=== PATIENT | female | born 1960 | race Caucasian/White ===

== ENCOUNTER 2019-12-29 07:22 | Inpatient (IN) | payer BC ==
[~2019-12-29] VITALS: Ht 154.9 cm; Wt 76.8 kg
[2019-12-29] MEDS ORDERED: LEVO50TA8 PO (07:31)
[2019-12-29] MEDS ORDERED: DICY10CA88 PO (07:31)
[2019-12-29] MEDS ORDERED: PANT40TA4 PO (07:31)
[2019-12-29] MEDS ORDERED: ONDANSETRON HCL 4MG/2ML INJ IV STA (09:05)
[2019-12-29] MEDS ORDERED: MORPHINE SULFATE 4 MG/ML CPJ (NOT FOR IM USE) IV STA (09:05)
[2019-12-29] MEDS ORDERED: SODIUM CHLORIDE 0.9% 1,000 ML IV ONE (09:05)
[2019-12-29] MEDS ORDERED: FAMOTIDINE 20MG/2ML VIAL IV STA (09:05)
[2019-12-29 09:21] LABS: CHLORIDE 108 mEq/L (98-107)
[2019-12-29 09:26] LABS: BASOPHILS % 0.2 % (0.0-2.0); EOSINOPHILS % 0.6 % (0.0-5.0); HEMATOCRIT. 41.2 % (36.0-48.0); LYMPHOCYTES % 13.3 % (20.0-50.0); MEAN CORPUSCULAR HEMOGLOBIN 32.6 pg (28.0-32.0); MEAN CORPUSCULAR VOLUME 95.8 fL (81.0-99.0); MEAN PLATELET VOLUME 9.1 fl (7.4-10.4); MONOCYTES % 2.6 % (2.0-8.0); NEUTROPHILS % 83.3 % (40.0-76.0); PLATELET 269 x1000/uL (130-400); RED CELL DISTRIBUTION WIDTH 13.3 % (11.6-14.6)
[2019-12-29 09:28] LABS: CLARITY URINE CLEAR (CLEAR); COLOR URINE YELLOW (YELLOW); KETONES URINE NEGATIVE (NEGATIVE); LEUKOCYTE ESTERASE URINE NEGATIVE (NEGATIVE); NITRITE URINE NEGATIVE (NEGATIVE); OCCULT BLOOD URINE NEGATIVE (NEGATIVE); PH URINE 7.5 (4.5-8.0); PROTEIN URINE NEGATIVE (NEGATIVE); SPECIFIC GRAVITY URINE 1.024 (1.005-1.030)
[2019-12-29 09:35] LABS: PROTHROMBIN TIME 10.3 sec (9.6-11.0)
[2019-12-29] MEDS ORDERED: PIPERACILLIN/TAZ 3.375G PREMIX 50 ML IV ONE (13:30)
[2019-12-29] MEDS ORDERED: MORPHINE SULFATE 2 MG/ML CPJ (NOT FOR IM USE) IV PRN (13:45)
[2019-12-29] MEDS ORDERED: ONDANSETRON HCL 4MG/2ML INJ IV PRN (13:45)
[2019-12-29] MEDS ORDERED: ACETAMINOPHEN 325MG TABLET PO PRN (13:45)
[2019-12-29 15:16] VITALS: BP 130/72
[2019-12-29] MEDS ORDERED: IOHEXOL-300 100 ML BOTTLE ONE (15:40)
[2019-12-29 16:00] VITALS: BP 120/98
[2019-12-29] MEDS ORDERED: LEVO112T7 PO (16:32)
[2019-12-29] MEDS: PIPERACILLIN/TAZOBACTAM 3.375 G in DEXT 5% WATER 100 ML IV SCH (17:39)
[2019-12-29] MEDS ORDERED: PIPERACILLIN/TAZOBACTAM 3.375 G in DEXT 5% WATER 100 ML IV SCH (18:00)
[2019-12-29] MEDS ORDERED: FAMOTIDINE 20MG TABLET PO SCH (21:00)
[2019-12-30] VITALS: BP 114/60
[2019-12-30] MEDS: PIPERACILLIN/TAZOBACTAM 3.375 G in DEXT 5% WATER 100 ML IV SCH ×3 (00:08→11:54)
[2019-12-30 02:00] VITALS: BP 102/47
[2019-12-30] MEDS ORDERED: TRIA0.2579 MT (02:48)
[2019-12-30] MEDS ORDERED: ZOLPIDEM TARTRATE 5MG TABLET PO PRN (03:15)
[2019-12-30 06:01] LABS: BASOPHILS % 0.7 % (0.0-2.0); EOSINOPHILS % 4.5 % (0.0-5.0); HEMATOCRIT. 37.8 % (36.0-48.0); LYMPHOCYTES % 33.3 % (20.0-50.0); MEAN CORPUSCULAR HEMOGLOBIN 32.7 pg (28.0-32.0); MEAN CORPUSCULAR VOLUME 95.4 fL (81.0-99.0); MEAN PLATELET VOLUME 8.6 fl (7.4-10.4); MONOCYTES % 7.7 % (2.0-8.0); NEUTROPHILS % 53.8 % (40.0-76.0); PLATELET 245 x1000/uL (130-400); RED BLOOD CELL COUNT 3.96 mill/uL (4.2-5.4); RED CELL DISTRIBUTION WIDTH 13.5 % (11.6-14.6)
[2019-12-30 06:55] LABS: CHLORIDE 109 mEq/L (98-107)
[2019-12-30] MEDS ORDERED: LEVOTHYROXINE SODIUM 112MCG TABLET PO SCH (07:20)
[2019-12-30] MEDS ORDERED: LEVOTHYROXINE SODIUM 50MCG TABLET PO SCH (07:20)
[2019-12-30 08:00] VITALS: BP 115/75
[2019-12-30 12:00] VITALS: BP 129/78
[2019-12-30 12:11] VITALS: BP 132/80
== END 2019-12-30 15:36 | disposition home or self-care (01) | DRG 446 ==
LOC: ER 08:09 → 6EST 13:31 → ENRESERV 14:22
PROVIDERS: ADMIT Internal Medicine; ATTEND Internal Medicine
DX: K80.00 Calculus of gallbladder with acute cholecystitis without obstruction (principal); E03.9 Hypothyroidism, unspecified; K76.0 Fatty (change of) liver, not elsewhere classified; E87.8 Other disorders of electrolyte and fluid balance, not elsewhere classified; Z79.899 Other long term (current) drug therapy; Z98.891 History of uterine scar from previous surgery
CPT/HCPCS: 36415; 74177; 76705; 80053; 81003; 84484; 85025; 93005; 99285; J2270; J2405; J2543; J3490; J7030; J7060; Q9967

== ENCOUNTER 2020-01-13 15:02 | Inpatient (IN) | payer BC ==
[~2020-01-13] VITALS: Ht 160 cm; Wt 68.0 kg
[~2020-01-13 15:02] MED LIST: DICY10CA88 PO; LEVO112T7 PO; PANT40TA4 PO; TRIA0.2579 MT
[2020-01-13] MEDS ORDERED: MORPHINE SULFATE 4 MG/ML CPJ (NOT FOR IM USE) IV STA (15:29)
[2020-01-13] MEDS ORDERED: SODIUM CHLORIDE 0.9% 1,000 ML IV ONE (15:29)
[2020-01-13] MEDS ORDERED: ONDANSETRON HCL 4MG/2ML INJ IV STA (15:29)
[2020-01-13 16:13] LABS: BASOPHILS % 0.4 % (0.0-2.0); HEMATOCRIT. 41.2 % (36.0-48.0); HEMOGLOBIN. 14.1 g/dL (12.0-16.0); LYMPHOCYTES % 17.4 % (20.0-50.0); MEAN CORPUSCULAR HEMOGLOBIN 32.8 pg (28.0-32.0); MEAN CORPUSCULAR VOLUME 96.1 fL (81.0-99.0); MEAN PLATELET VOLUME 8.9 fl (7.4-10.4); MONOCYTES % 6.6 % (2.0-8.0); NEUTROPHILS % 74.6 % (40.0-76.0); PLATELET 291 x1000/uL (130-400); RED BLOOD CELL COUNT 4.28 mill/uL (4.2-5.4)
[2020-01-13 16:21] LABS: CHLORIDE 106 mEq/L (98-107)
[2020-01-13 16:30] LABS: CLARITY URINE CLEAR (CLEAR); COLOR URINE DARK YELLOW (YELLOW); KETONES URINE TRACE (NEGATIVE); LEUKOCYTE ESTERASE URINE TRACE (NEGATIVE); NITRITE URINE NEGATIVE (NEGATIVE); OCCULT BLOOD URINE NEGATIVE (NEGATIVE); PROTEIN URINE NEGATIVE (NEGATIVE); SPECIFIC GRAVITY URINE 1.025 (1.005-1.030)
[2020-01-13] MEDS ORDERED: CEFTRIAXONE 1 G PREMIX 50 ML IV ONE (16:45)
[2020-01-13] MEDS ORDERED: ASPIRIN 81MG TABLET PO ONE (18:15)
[2020-01-13 20:00] VITALS: BP 144/76
[2020-01-13] MEDS ORDERED: DIPHENHYDRAMINE 50MG/ML VIAL IV PRN (20:00)
[2020-01-13] MEDS ORDERED: MORPHINE SULFATE 2 MG/ML CPJ (NOT FOR IM USE) IV PRN (20:00)
[2020-01-13] MEDS ORDERED: IPRATROPIUM/ALBUTEROL 0.5-3(2.5)MG/3ML NEB HHN PRN (20:00)
[2020-01-13] MEDS ORDERED: CLONIDINE 0.1MG TABLET PO PRN (20:00)
[2020-01-13] MEDS: ONDANSETRON HCL 4MG/2ML INJ IV PRN (20:14)
[2020-01-13] MEDS: SODIUM CHLORIDE 0.9% 1,000 ML IV SCH (20:17)
[2020-01-14] MEDS ORDERED: PIPERACILLIN/TAZOBACTAM 3.375 G in DEXT 5% WATER 100 ML IV SCH ×2
[2020-01-14] MEDS: PIPERACILLIN/TAZ 3.375G PREMIX 50 ML IV SCH ×2 (00:04→08:00)
[2020-01-14 04:34] LABS: BASOPHILS % 1.1 % (0.0-2.0); EOSINOPHILS % 3.1 % (0.0-5.0); HEMATOCRIT. 39.2 % (36.0-48.0); HEMOGLOBIN. 13.2 g/dL (12.0-16.0); MEAN CORPUSCULAR HEMOGLOBIN 32.5 pg (28.0-32.0); MEAN CORPUSCULAR VOLUME 96.5 fL (81.0-99.0); MEAN PLATELET VOLUME 8.8 fl (7.4-10.4); MONOCYTES % 7.2 % (2.0-8.0); NEUTROPHILS % 55.6 % (40.0-76.0); PLATELET 283 x1000/uL (130-400); RED BLOOD CELL COUNT 4.07 mill/uL (4.2-5.4)
[2020-01-14 04:35] LABS: CHLORIDE 109 mEq/L (98-107)
[2020-01-14 04:45] LABS: LDL CHOLESTEROL 131 mg/dL (5-100)
[2020-01-14 04:47] LABS: HDL CHOLESTEROL 27 mg/dL (40-59)
[2020-01-14 08:30] VITALS: BP 138/60
[2020-01-14 09:15] VITALS: BP 138/60
[2020-01-14] MEDS: ACETAMINOPHEN 325MG TABLET PO PRN (10:58)
[2020-01-14] MEDS: SODIUM CHLORIDE 0.9% 1,000 ML IV SCH (10:59)
[2020-01-14 11:57] VITALS: BP 133/61
[2020-01-14 16:00] VITALS: BP 145/78
[2020-01-14] MEDS ORDERED: DEXTROSE 50% WATER 50ML SYRINGE IV PRN (19:00)
[2020-01-14] MEDS: PIPERACILLIN/TAZOBACTAM 3.375 G in DEXT 5% WATER 100 ML IV SCH (19:56)
[2020-01-14 20:00] VITALS: BP 144/76
[2020-01-14] MEDS: BLOOD SUGAR DIAGNOSTIC STRIP TEST SCH (20:27)
[2020-01-14] MEDS: INSULIN LISPRO 100 UNITS/ML SUBCUT SCH (20:27)
[2020-01-14] MEDS ORDERED: MAGNESIUM/ALUMINUM HYDROXIDE/SIMETHICONE 30ML UDC PO PRN (22:30)
[2020-01-14] MEDS ORDERED: ZOLPIDEM TARTRATE 5MG TABLET PO PRN (22:30)
[2020-01-15] VITALS: BP 123/67
[2020-01-15] MEDS: PIPERACILLIN/TAZOBACTAM 3.375 G in DEXT 5% WATER 100 ML IV SCH ×3 (02:48→19:30)
[2020-01-15 04:00] VITALS: BP 122/54
[2020-01-15] MEDS: SODIUM CHLORIDE 0.9% 1,000 ML IV SCH ×2 (05:20→11:53)
[2020-01-15] MEDS: LEVOTHYROXINE SODIUM 112MCG TABLET PO SCH (06:13)
[2020-01-15] MEDS: INSULIN LISPRO 100 UNITS/ML SUBCUT SCH ×4 (06:13→20:15)
[2020-01-15] MEDS: BLOOD SUGAR DIAGNOSTIC STRIP TEST SCH ×4 (06:13→20:15)
[2020-01-15 07:02] LABS: CHLORIDE 110 mEq/L (98-107)
[2020-01-15 07:15] LABS: BASOPHILS % 0.9 % (0.0-2.0); EOSINOPHILS % 5.3 % (0.0-5.0); HEMOGLOBIN. 12.9 g/dL (12.0-16.0); LYMPHOCYTES % 38.3 % (20.0-50.0); MEAN CORPUSCULAR HEMOGLOBIN 32.7 pg (28.0-32.0); MEAN CORPUSCULAR VOLUME 96.4 fL (81.0-99.0); MONOCYTES % 7.1 % (2.0-8.0); NEUTROPHILS % 48.4 % (40.0-76.0); PLATELET 279 x1000/uL (130-400); RED BLOOD CELL COUNT 3.94 mill/uL (4.2-5.4); RED CELL DISTRIBUTION WIDTH 14.5 % (11.6-14.6)
[2020-01-15 08:00] VITALS: BP 116/49
[2020-01-15 08:01] LABS: PARTIAL THROMBOPLASTIN TIME 26.9 sec (23.4-31.0); PROTHROMBIN TIME 10.7 sec (9.6-11.0)
[2020-01-15 11:47] VITALS: BP 104/57
[2020-01-15 16:00] VITALS: BP 116/71
[2020-01-15] MEDS ORDERED: LIDOCAINE HCL 1% 20ML VIAL (Pyxis) INJ ONE (18:59)
[2020-01-15] MEDS ORDERED: SKIN ADHESIVE 0.7 GM EA TOP ONE (18:59)
[2020-01-15] MEDS ORDERED: BACITRACIN 50,000 UNITS/VIAL ONE (19:00)
[2020-01-15] MEDS ORDERED: BUPIVACAINE HCL/PF 0.5% (5MG/ML) 10ML ONE ×2 (19:00→19:01)
[2020-01-15] MEDS ORDERED: PROPOFOL 200MG/20ML VIAL IV ONE (20:35)
[2020-01-15] MEDS ORDERED: HYDROMORPHONE HCL/PF 2MG/ML (OR) ONE (20:35)
[2020-01-15] MEDS ORDERED: GLYCOPYRROLATE 0.2 MG/ML 2ML VIAL ONE ×2 (20:35→21:49)
[2020-01-15] MEDS ORDERED: ROCURONIUM BROMIDE 10MG/ML VIAL 5ML IV ONE (20:35)
[2020-01-15] MEDS ORDERED: HYDROMORPHONE HCL/PF 2MG/ML CPJ IV PRN (21:45)
[2020-01-15] MEDS ORDERED: LABETALOL 5MG/ML SYR 20 MG/4 ML SYRINGE IV PRN (21:45)
[2020-01-15] MEDS ORDERED: MEPERIDINE HCL/PF 25MG/ML CPJ IV PRN (21:45)
[2020-01-15] MEDS ORDERED: ONDANSETRON HCL 4MG/2ML INJ IV PRN (21:45)
[2020-01-15] MEDS ORDERED: NEOSTIGMINE METHYLSULFATE 1MG/ML 10 ML VIAL ONE (21:49)
[2020-01-15] MEDS ORDERED: MORPHINE SULFATE 4 MG/ML CPJ (NOT FOR IM USE) IV PRN (22:15)
[2020-01-16] VITALS: BP 138/80
[2020-01-16] MEDS: PIPERACILLIN/TAZOBACTAM 3.375 G in DEXT 5% WATER 100 ML IV SCH ×2 (02:43→11:30)
[2020-01-16] MEDS: ONDANSETRON HCL 4MG/2ML INJ IV PRN ×2 (02:43→08:30)
[2020-01-16 04:00] VITALS: BP_SYST 104; BP_SYST 132; BP_DIAS 59; BP_DIAS 65
[2020-01-16] MEDS: SODIUM CHLORIDE 0.9% 1,000 ML IV SCH (04:34)
[2020-01-16] MEDS: ACETAMINOPHEN 325MG TABLET PO PRN ×2 (04:39→11:14)
[2020-01-16] MEDS: INSULIN LISPRO 100 UNITS/ML SUBCUT SCH (06:24)
[2020-01-16] MEDS: BLOOD SUGAR DIAGNOSTIC STRIP TEST SCH (06:24)
[2020-01-16 07:13] LABS: BASOPHILS % 0.2 % (0.0-2.0); EOSINOPHILS % 0.1 % (0.0-5.0); HEMATOCRIT. 39.2 % (36.0-48.0); LYMPHOCYTES % 7.8 % (20.0-50.0); MEAN CORPUSCULAR HEMOGLOBIN 32.2 pg (28.0-32.0); MEAN CORPUSCULAR VOLUME 96.8 fL (81.0-99.0); MEAN PLATELET VOLUME 8.7 fl (7.4-10.4); MONOCYTES % 3.7 % (2.0-8.0); NEUTROPHILS % 88.2 % (40.0-76.0); PLATELET 282 x1000/uL (130-400); RED BLOOD CELL COUNT 4.05 mill/uL (4.2-5.4); RED CELL DISTRIBUTION WIDTH 14.3 % (11.6-14.6)
[2020-01-16 07:19] LABS: CHLORIDE 106 mEq/L (98-107)
[2020-01-16 08:00] VITALS: BP 121/53
[2020-01-16] MEDS: LEVOTHYROXINE SODIUM 112MCG TABLET PO SCH (08:22)
[2020-01-16] MEDS ORDERED: HYDROCODONE/ACETAMINOPHEN 5/325MG TABLET PO NR (11:45)
[2020-01-16 11:50] VITALS: BP 117/59
[2020-01-16] MEDS ORDERED: ONDA4TAB11 PO (12:17)
[2020-01-16 12:42] VITALS: BP 117/59
== END 2020-01-16 15:40 | disposition home or self-care (01) | DRG 419 ==
LOC: ER 15:02 → EDBEDREQ 18:04 → EDBEDREQTM 18:04 → 8WST 18:21 → EDBEDREQTM 18:26 → EDBEDREQ 18:26 → ENRESERV 01-14 07:55 → 8WST 01-14 09:36
PROVIDERS: ADMIT Internal Medicine; ATTEND Internal Medicine
PROC: 0FT44ZZ Resection of Gallbladder, Percutaneous Endoscopic Approach (ICD-10-PCS; principal; 2020-01-15)
DX: K80.00 Calculus of gallbladder with acute cholecystitis without obstruction (principal); K82.8 Other specified diseases of gallbladder; K76.0 Fatty (change of) liver, not elsewhere classified; E03.9 Hypothyroidism, unspecified; E78.5 Hyperlipidemia, unspecified; Z20.828 Contact with and (suspected) exposure to other viral communicable diseases; R79.89 Other specified abnormal findings of blood chemistry; Z79.899 Other long term (current) drug therapy; Z98.891 History of uterine scar from previous surgery; Z79.890 Hormone replacement therapy
CPT/HCPCS: 36415; 71045; 73706; 74181; 76700; 80048; 80053; 80061; 80076; 81003; 82962; 83036; 84443; 84484; 85025; 87426; 88304; 93005; 93970; 96365; 99285; J0696; J1170; J2270; J2405; J2543; J2704; J2710; J3490; J7030; J7060

== ENCOUNTER 2024-04-13 16:06 | Emergency (ER) | payer BC ==
[~2024-04-13] VITALS: Ht 167.6 cm; Wt 95.0 kg
[~2024-04-13 16:06] MED LIST changes: -DICY10CA88 PO; +ONDA-239 PO; -PANT40TA4 PO; +PANT40TA51 PO
[2024-04-13 16:21] VITALS: PULSE 67; RESP 18; O2SAT 99
[2024-04-13 16:23] VITALS: BP 177/65; TEMP 98.4; O2SAT 99
== END 2024-04-13 19:02 | disposition left against medical advice (07) ==
LOC: ER 16:06
DX: H57.89 Other specified disorders of eye and adnexa (principal); Z53.21 Procedure and treatment not carried out due to patient leaving prior to being seen by health care provider
CPT/HCPCS: 99281